=== PATIENT | female | born 1995 | race Caucasian/White ===

== ENCOUNTER 2020-01-04 21:22 | Inpatient (IN) | payer OTHER ==
[~2020-01-04] VITALS: Ht 167.6 cm; Wt 88.9 kg
[2020-01-04] MEDS ORDERED: PRENATAL TABLE1 EAC1 PO (21:30)
[2020-01-08] MEDS ORDERED: AMOX1TAB5 PO (08:31)
[2020-01-08] MEDS ORDERED: PREPLUS CA-FE1 EACH PO (08:31)
[2020-01-08] MEDS ORDERED: DOCUSATE SODIU100 MG PO (08:31)
[2020-01-08] MEDS ORDERED: IBUPROFEN400 MG PO (08:31)
== END 2020-01-08 11:24 | disposition home or self-care (01) | DRG 807 ==
LOC: OB/GYN 21:22 → LDR 21:22 → OB/GYN 01-06 15:16
PROVIDERS: ADMIT Obstetrics & Gynecology; ATTEND Obstetrics & Gynecology
PROC: 4A1HXFZ Monitoring of Products of Conception, Cardiac Rhythm, External Approach (ICD-10-PCS; 2020-01-04)
PROC: BY4FZZZ Ultrasonography of Third Trimester, Single Fetus (ICD-10-PCS; 2020-01-05)
PROC: 10E0XZZ Delivery of Products of Conception, External Approach (ICD-10-PCS; principal; 2020-01-06)
PROC: 0HQ9XZZ Repair Perineum Skin, External Approach (ICD-10-PCS; 2020-01-06)
PROC: 3E033VJ Introduction of Other Hormone into Peripheral Vein, Percutaneous Approach (ICD-10-PCS; 2020-01-06)
DX: O70.0 First degree perineal laceration during delivery (principal); Z37.0 Single live birth; Z3A.37 37 weeks gestation of pregnancy; Z20.828 Contact with and (suspected) exposure to other viral communicable diseases